=== PATIENT | female | born 1980 | race Caucasian/White ===

== ENCOUNTER 2023-04-14 08:04 | Emergency (ER) | payer SELFPAY ==
[~2023-04-14] VITALS: Ht 170.2 cm; Wt 77.0 kg
[2023-04-14 08:10] VITALS: O2SAT 98
[2023-04-14] MEDS ORDERED: LIDOCAINE 5% PATCH TOP SCH (08:30)
[2023-04-14] MEDS ORDERED: IBUPROFEN 600MG TABLET PO ONE (08:30)
[2023-04-14] MEDS ORDERED: NAPR220C61 MT (09:51)
[2023-04-14 10:47] VITALS: BP 122/69; PULSE 66; RESP 20; TEMP 97.7
== END 2023-04-14 10:59 | disposition home or self-care (01) ==
LOC: ER 09:04
DX: R07.89 Other chest pain (principal); M25.562 Pain in left knee; G89.11 Acute pain due to trauma; E11.9 Type 2 diabetes mellitus without complications; V49.49XA Driver injured in collision with other motor vehicles in traffic accident, initial encounter; Y93.89 Activity, other specified; Y92.89 Other specified places as the place of occurrence of the external cause; Y99.8 Other external cause status
CPT/HCPCS: 71045; 73562; 73590; 81025; 99284